=== PATIENT | male | born 1975 | race Caucasian/White ===

== ENCOUNTER → 2021-05-20 | Outpatient (CLI) | payer OTHER ==
--- NOTE | 2021-05-20 16:04 | 2DMMODE ---
[place] [address] 2 D/M-MODE ECHOCARDIOGRAM Name: ELBERT MCCARTHY Room: [facility]#: [id number] Admission: 05/20/21 Attend Phys: Physician not on s Discharge: Date of : 71 Date of Service: 05/20/21 1604 Report #: [id number] THIS REPORT FOR: cc: Jag Florian MD, Marjon MD Blick, David R. MD [facility] ~ APPROVED REPORT Study performed: 05/20/2021 14:04:55 EXAM: Comprehensive 2D, Doppler, and color-flow Echocardiogram Patient Location: Out-Patient BSA: 2.22 HR: 65 bpm BP: 120/70 mmHg Other Information Study Quality: Good Indications Zoltan- Parkinson- White syndrome 2D Dimensions IVSd: 11.41 (7-11mm) LVOT Diam: 20.07 (18-24mm) LVDd: 40.41 mm PWd: 11.21 (7-11mm) Ascending Ao: 27.66 (22-36mm) LVDs: 28.09 (25-40mm) Aortic Root: 27.53 mm Volumes Left Atrial Volume (Systole) LA ESV Index: 15.80 mL/m2 Aortic Valve AoV Peak Giovani.: 0.97 m/s AO Peak Gr.: 3.78 mmHg LVOT Max P.58 mmHg AO Mean Gr.: 2.16 mmHg LVOT Mean P.65 mmHg LVOT Max V: 0.95 m/s AO V2 VTI: 15.69 cm LVOT Mean V: 0.59 m/s MALLORY (VTI): 3.29 cm2 LVOT V1 VTI: 16.30 cm Mitral Valve E/A Ratio: 0.88 [place] [address] 2 D/M-MODE ECHOCARDIOGRAM Name: ELBERT MCCARTHY Room: [facility]#: [id number] Admission: 05/20/21 Attend Phys: Physician not on s Discharge: Date of : 71 Date of Service: 05/20/21 1604 Report #: [id number] MV Decel. Time: 215.48 ms MV E Max Giovani.: 0.43 m/s MV PHT: 62.49 ms MVA (PHT): 3.52 cm2 TDI E/Lateral E': 5.38 E/Medial E': 7.17 Medial E' Giovani.: 0.06 m/s Lateral E' Giovani.: 0.08 m/s Pulmonary Valve PV Peak Giovani.: 1.16 m/s PV Peak Gr.: 5.42 mmHg Left Ventricle The left ventricle is normal size. There is normal LV segmental wall motion. Mild concentric left ventricular hypertrophy. Left ventricular systolic function is normal. The left ventricular ejection fraction is within the normal range. LVEF is 55-60%. Grade I - abnormal relaxation pattern. Right Ventricle The right ventricle is normal size. The right ventricular systolic function is normal. Atria The left atrium size is normal. The right atrium size is normal. Aortic Valve The aortic valve is normal in structure. No aortic regurgitation is present. There is no aortic valvular stenosis. Mitral Valve The mitral valve is normal in structure. There is no mitral valve regurgitation noted. No evidence of mitral valve stenosis. Tricuspid Valve The tricuspid valve is normal in structure. There is no tricuspid valve regurgitation noted. Pulmonic Valve The pulmonary valve is normal in structure. There is no pulmonic valvular regurgitation. Great Vessels The aortic root is normal in size. IVC [place] [address] 2 D/M-MODE ECHOCARDIOGRAM Name: ELBERT MCCARTHY Room: [facility]#: [id number] Admission: 05/20/21 Attend Phys: Physician not on s Discharge: Date of : 71 Date of Service: 05/20/21 1604 Report #: [id number] collapses >50% with inspiration. Pericardium There is no pericardial effusion. <Conclusion> Mild concentric left ventricular hypertrophy. LVEF is 55-60%. <ELECTRONICALLY SIGNED> By: Jaison Weeks MD, FAC 05/20/21 1604 1604 1604 Jaison Weeks MD, [facility] /INF
--- NOTE | 2021-05-20 16:10 | EKG ---
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
== END ==
LOC: M.ULTRA 13:00 → M.CRD 14:00
DX: I45.6 Pre-excitation syndrome (principal); I73.9 Peripheral vascular disease, unspecified; R55 Syncope and collapse